=== PATIENT | male | born 1950 | race Caucasian/White ===

== ENCOUNTER → 2018-01-01 | Outpatient (RCR) | payer OTHER | END | disposition home or self-care (01) | LOC: PTY 12:30 | DX: M25.512 Pain in left shoulder (principal); G89.29 Other chronic pain ==

== ENCOUNTER 2018-01-24 11:15 | Outpatient (RCR) | payer OTHER | END 2018-01-29 | disposition home or self-care (01) | LOC: PTY 11:15 | DX: M25.512 Pain in left shoulder (principal); G89.29 Other chronic pain ==

== ENCOUNTER 2018-01-31 10:45 | Outpatient (RCR) | payer OTHER | END 2018-03-01 | disposition home or self-care (01) | LOC: PTY 10:45 | DX: M25.512 Pain in left shoulder (principal); G89.29 Other chronic pain ==

== ENCOUNTER 2018-03-14 11:00 | Outpatient (RCR) | payer OTHER | END 2018-03-31 | disposition home or self-care (01) | LOC: PTY 11:00 | DX: M25.512 Pain in left shoulder (principal); G89.29 Other chronic pain ==